=== PATIENT | male | born 1975 | race Caucasian/White ===

== ENCOUNTER 2017-12-06 16:06 | Emergency (ER) | payer SELFPAY ==
[~2017-12-06] VITALS: Ht 177.8 cm; Wt 81.6 kg
[2017-12-06] MEDS ORDERED: ORPHENADRINE 60 MG/2 ML (NORFLEX) AMP IM ONE (16:30)
[2017-12-06] MEDS ORDERED: KETOROLAC 60 MG/2 ML VIAL IM ONE (16:30)
--- NOTE | 2017-12-06 16:45 | ED Back Pain ---
General Chief Complaint: Back Problems Stated Complaint: LOWER BACK PAIN Nursing Triage Note: LOWER BACK PAIN X 3 MONTH WITH WORSENING PAIN FOR THE LAST 3 DAYS. DIFFICULTY GETTING OUT OF BED X 3 DAYS. HISTORY OF RECENT WEIGHT LOSS 15+ LBS WITHOUT TRYING. PATIENT STATES HE HAD A PREVIOUS MRI OF HIS BACK OVER 1 YEAR AGO AND WAS TOLD HE HAD A SPOT ON HIS KIDNEY AND TOLD TO FOLLOW UP IN 6 MONTHS BUT DID NOT FOLLOW UP. Nursing Sepsis Screen: No Definite Risk Source of Information: Patient Exam Limitations: No Limitations History of Present Illness Date Seen by Provider: Dec 06, 2017 Time Seen by Provider: 16:15 Initial Comments Patient is a 42-year-old male who presents to the emergency room with complaints of chronic back pain that has become worse for the past 3 days. He reports that he's had trouble getting out of bed in the mornings due to a stiff back. He's also had 15 pound weight loss over the past 2 months he's had MRI imaging of his back over a year ago and he was told that there was a spot on his kidney and he was told to follow-up in 6 months which she did not do. He denies any numbness or tingling in his legs, saddle paresthesia, or loss of bowel or bladder. Location: Lumbar Spine Timing/Duration: Other (chronic) Associated Symptoms: denies symptoms Allergies and Home Medications Allergies Coded Allergies: No Known Drug Allergies (Unverified , 12/23/11) Home Medications Cyclobenzaprine HCl 10 Mg Tablet, 10 MG PO TID PRN for MUSCLE SPASMS Prescribed by: CONSTANCE LUCERO on 12/06/17 1710 Tramadol HCl 50 Mg Tablet, 50 MG PO Q8H Prescribed by: CONSTANCE LUCERO on 12/06/17 1710 Patient Home Medication List Home Medication List Reviewed: Yes Constitutional: see HPI; No chills, No fever Musculoskeletal: see HPI, back pain (lumbar back pain), muscle stiffness Past Stftyeq-Wpwnkx-Ghoazc Hx Past Med/Social Hx: Reviewed Nursing Past Med/Soc Hx Patient Social History Alcohol Use: Regular Use Alcohol Beverage of Choice: Vodka Recreational Drug Use: No Smoking Status: Current Everyday Smoker Type Used: Cigarettes Recent Foreign Travel: No Contact w/Someone Who Travel: No Recent Infectious Disease Expo: No Seasonal Allergies Seasonal Allergies: No Family Medical History Reviewed Nursing Family Hx No Pertinent Family Hx Physical Exam Vital Signs Vital Signs - First Documented 12/06/17 12/06/17 16:15 17:16 Temp 98.1 Pulse 101 Resp 16 B/P (MAP) 145/102 (116) Pulse Ox 97 O2 Delivery Room Air Capillary Refill : Less Than 3 Seconds Height, Weight, BMI Height: 5'10.00" Weight: 180lbs. oz. 81.694339rp; BMI Method:Stated General Appearance: No Apparent Distress, WD/WN Back: Normal Inspection, No CVA Tenderness, Vertebral Tenderness (lumbar vertebral tenderness.) Neurologic/Psychiatric: Alert, Oriented x3, Normal Mood/Affect Skin: Normal Color, Warm/Dry Progress/Results/Core Measures Results/Orders My Orders Orders - BERNOT,CONSTANCE Ketorolac Injection (Toradol Injection) (12/06/17 16:30) Orphenadrine Injection (Norflex Injectio (12/06/17 16:30) Medications Given in ED Vital Signs/I&O 12/06/17 12/06/17 16:15 17:16 Temp 98.1 97.9 Pulse 101 87 Resp 16 16 B/P (MAP) 145/102 (116) 130/97 Pulse Ox 97 O2 Delivery Room Air Blood Pressure Mean: 116 Progress Progress Note : Time: 16:57 Progress Note I have seen and evaluated the patient. He had relief of pain from the Toradol and Norflex. He states that he thinks he had imaging at [facility] but is unsure. I informed him that I was unable to find his imaging studies in our records, [facility]'s records, or [facility]. I did set him up an appointment with Darshan Clemente [facility] [facility] [facility] at [facility] on at 2 PM for further evaluation. He agrees with plans of care, use of medications, and return precautions. Departure Impression Primary Impression: Back pain Qualified Codes: M54.5 - Low back pain; G89.29 - Other chronic pain Disposition: 01 HOME, SELF-CARE Condition: Stable/Unchanged Departure-Patient Inst. Decision time for Depature: 16:59 Referrals: NO,LOCAL PHYSICIAN (PCP/Family) Primary Care Physician Patient Instructions: Low Back Pain (DC) Add. Discharge Instructions: Take medications as directed. I have made you an appointment with [facility] on Monday12/19/17 at 2:00Pm with Ángel Clemente. Return back to the emergency room should she develop any worsening pain, worsening symptoms, or any other concerns as needed. All discharge instructions reviewed with patient and/or family. Voiced understanding. Scripts Tramadol HCl (Ultram) 50 Mg Tablet 50 MG PO Q8H for Pain, #14 TAB Prov: CONSTANCE LUCERO 12/06/17 Cyclobenzaprine HCl (Cyclobenzaprine HCl) 10 Mg Tablet 10 MG PO TID PRN for MUSCLE SPASMS, #14 TAB Prov: CONSTANCE LUCERO 12/06/17 Work/School Note: Work Release Form Date Seen in the Emergency Department: Dec 06, 2017 Return to Work: Dec 07, 2017 Restrictions: No Restrictions CONSTANCE LUCERO Dec 06, 2017 16:45
--- OUTSIDE RECORDS SUMMARY | 2017-12-06 16:47 | XMS REPORT | Continuity of Care Document ---
Author Author [facility] Address Unknown Phone Unavailable Allergies Active Description Code Type Severity Reaction Onset Reported/Identified Relationship to Patient Clinical Status Yes No Known Drug Allergies [id number] Drug Allergy Unknown N/A 12/23/2011 Medications There is no data. Problems Date Dx Coded Attending Type Code Diagnosis Diagnosed By 07/05/2008 RENATE HERNANDEZ APRN V74.1 SCREENING EXAMINATION FOR PULMONARY TUBERCULOSIS 12/24/2013 RENATE HERNANDEZ APRN V70.0 ROUTINE GENERAL MEDICAL EXAMINATION AT A [facility] 08/19/2014 DAPHNE JAMES MD Ot 276.51 08/19/2014 DAPHNE JAMES MD Ot 786.52 Procedures There is no data. Results There is no data. Encounters ACCT No. Visit Date/Time Discharge Status Pt. Type Provider Facility Loc./Unit Complaint [id number] 12/03/2014 12:55:00 12/03/2014 23:59:59 CLS Outpatient RUBEN MCKEON [id number] 08/19/2014 11:57:00 08/19/2014 14:06:00 DIS Emergency DAPHNE JAMES MD [facility] [id number] 08/19/2014 11:58:00 Document Registration [id number] 12/24/2013 10:50:00 12/24/2013 23:59:59 CLS Outpatient RENATE HERNANDEZ APRN
--- OUTSIDE RECORDS SUMMARY | 2017-12-06 16:47 | XMS REPORT ---
Author Author PETER MORTON Organization [facility] Address [address] [place] [address] Care Team Providers Care Customer Experience Professional Name Role Phone PETER MORTON Unavailable PROBLEMS Type Condition ICD9-CM Code SHH28-PS Code Onset Dates Condition Status SNOMED Code Problem Mood disorder F39 Active [id number] Problem Routine general medical examination at [facility] care facility V70.0 Active [id number] ALLERGIES No Known Allergies ENCOUNTERS Encounter Location Date Diagnosis [facility] [address] [facility] [id number] [id number] Apr, [facility] [address], [place] [id number] Dec, Mood disorder F39 [facility] [address] [id number], [place] [address] Dec, [facility] [address] [facility] [id number], [place] [address] Dec, IMMUNIZATIONS No Known Immunizations SOCIAL HISTORY Never Assessed REASON FOR VISIT [facility] rx PLAN OF CARE VITAL SIGNS MEDICATIONS Medication Instructions Dosage Frequency Start Date End Date Duration Status PredniSONE 20 MG Orally Once a day 1 tablet 24h Apr, Jun, 30 day(s) Active Amoxicillin 500 mg Orally 3 times a day 1 capsule 8h Apr, May, 10 day(s) Active RESULTS No Results PROCEDURES No Known procedures INSTRUCTIONS MEDICATIONS ADMINISTERED No Known Medications
[2017-12-06] MEDS ORDERED: CYCL10TA9 PO (17:10)
[2017-12-06] MEDS ORDERED: TRAM-42 PO (17:10)
[2017-12-06 17:16] VITALS: BP 130/97
== END 2017-12-06 17:16 | disposition home or self-care (01) ==
LOC: EDUNIT# 16:06 → ER 16:07
DX: M54.5 Low back pain (principal); F17.210 Nicotine dependence, cigarettes, uncomplicated
CPT/HCPCS: 99284